=== PATIENT | male | born 1975 | race Caucasian/White ===

== ENCOUNTER 2020-04-24 14:21 | Emergency (ER) | payer OTHER, SELFPAY ==
[~2020-04-24] VITALS: Ht 180.3 cm; Wt 84.8 kg
[2020-04-24 14:21] VITALS: BP_SYST 120
--- NOTE | 2020-04-24 14:25 | NUR ---
Patient triaged and placed in waiting room. VSS and patient appears in no acute distress at this time. Accompanied by SELF, awaiting available bed, and MD notified of need for MSE.
--- NOTE | 2020-04-24 14:40 | NUR ---
DR HERNANDEZ TO TENT TO EVALUATE PT.
--- NOTE | 2020-04-24 14:45 | NUR ---
PT STATES HE WAS SITTING ON THE COUCH DOING NOTHING AND BECAME DIAPHORETIC, SOB AND ANXIOUS. STATES SYMPTOMS RESOLVED EXCEPT HE FEELS CHEST TIGHTNESS AND SLIGHT SOB. SPEAKING FULL SENTENCES, NO DISTRESS
--- NOTE | 2020-04-24 15:40 | NUR ---
NO CHANGES, RESTING QUIETLY
[2020-04-24 15:46] LABS: BASOPHILS # (AUTO) 0.1 K/uL (0.0-0.2); BASOPHILS % (AUTO) 0.6 % (0.0-2.0); EOSINOPHILS # (AUTO) 0.2 K/uL (0.0-0.4); EOSINOPHILS % (AUTO) 2.5 % (0.0-4.0); HEMATOCRIT 45.6 % (36-54); LYMPHOCYTES # (AUTO) 1.6 K/uL (1.0-5.5); LYMPHOCYTES % (AUTO) 17.8 % (20.5-51.5); MEAN CORPUSCULAR HEMOGLOBIN 29 pg (27-31); MEAN CORPUSCULAR HGB CONC 33 % (32-36); MEAN CORPUSCULAR VOLUME 89 fL (79.0-98.0); MONOCYTES # (AUTO) 0.5 K/uL (0.0-1.0); MONOCYTES % (AUTO) 5.4 % (1.7-9.3); NEUTROPHILS # (AUTO) 6.5 K/uL (1.8-7.7); NEUTROPHILS % (AUTO) 73.7 % (40.0-70.0); PLATELET COUNT (AUTO) 231 K/uL (130-430); RED CELL DISTRIBUTION WIDTH 12.9 % (9.0-15.0); WHITE BLOOD COUNT (AUTO) 8.8 K/uL (4.8-10.8)
--- NOTE | 2020-04-24 16:20 | NUR ---
NO CHANGES, AWAITING LAB RESULTS.
[2020-04-24 16:42] LABS: CALCIUM 9.3 mg/dL (8.4-11.0); CREATININE 1.1 mg/dL (0.55-1.30); POTASSIUM 3.7 mmol/L (3.5-5.1)
[2020-04-24 16:52] LABS: ALBUMIN 3.9 g/dL (3.4-4.8); TOTAL BILIRUBIN 0.6 mg/dL (0.0-1.0)
--- NOTE | 2020-04-24 17:02 | NUR ---
SPOKE WITH PTS AND WILL MONITOR
--- NOTE | 2020-04-24 17:12 | NUR ---
REPEAT EKG GIVEN TO DR HERNANDEZ
--- NOTE | 2020-04-24 17:56 | NUR ---
Patient given written and verbal discharge instructions and verbalizes understanding. ER MD discussed with patient the results and treatment provided. Patient in stable condition. ID arm band removed. Rx of NONE given. Patient educated on pain management and to follow up with PMD. Pain Scale 0/10. Opportunity for questions provided and answered. Medication side effect fact sheet provided.
== END 2020-04-24 15:57 | disposition home or self-care (01) ==
LOC: SED 14:21
DX: R07.89 Other chest pain (principal); R00.2 Palpitations
CPT/HCPCS: 36415; 71045; 80053; 82550-TC; 84484; 85025; 93005; 99285

== ENCOUNTER 2024-07-22 08:50 | Emergency (ER) | payer OTHER ==
[~2024-07-22] VITALS: Ht 177.8 cm; Wt 83.9 kg
[2024-07-22 08:55] VITALS: BP_SYST 122; PULSE 76; RESP 21; TEMP 97.7; O2SAT 99
[2024-07-22 09:38] LABS: INFLUENZA TYPE A Negative (NEGATIVE); INFLUENZA TYPE B NEGATIVE (NEGATIVE)
[2024-07-22] MEDS ORDERED: PRED20TA PO (10:18)
[2024-07-22 10:29] VITALS: BP_SYST 122; PULSE 76; RESP 21; TEMP 97.7; O2SAT 99
== END 2024-07-22 10:27 | disposition home or self-care (01) ==
LOC: SED 08:50
DX: J06.9 Acute upper respiratory infection, unspecified (principal); R05.9 Cough, unspecified; M79.10 Myalgia, unspecified site; J45.909 Unspecified asthma, uncomplicated; Z20.822 Contact with and (suspected) exposure to COVID-19
CPT/HCPCS: 36415; 71045; 99284